=== PATIENT | female | born 1955 | race Caucasian/White ===

== ENCOUNTER → 2017-07-09 | Outpatient (CLI) | payer OTHER ==
[~2017-07-09] MED LIST: NONE PER PT
== END ==
LOC: STAR 15:30
PROVIDERS: ATTEND Internal Medicine Gastroenterology
DX: Z02.9 Encounter for administrative examinations, unspecified (principal)

== ENCOUNTER 2017-07-24 05:41 | Day surgery (SDC) | payer OTHER ==
[2017-07-09 16:06] VITALS: BP 122/84
[~2017-07-24] VITALS: Ht 157.5 cm; Wt 50.5 kg
[2017-07-24] MEDS ORDERED: LIDOCAINE 1%, 2ML ONE (06:40)
[2017-07-24] MEDS ORDERED: LACTATED RINGERS 1,000 ML IV SCH (06:43)
[2017-07-24] MEDS ORDERED: LIDOCAINE 1%, 2ML SQ PRN (07:00)
[2017-07-24] MEDS ORDERED: MIDAZOLAM 1 MG/ML, 2ML ONE (07:51)
[2017-07-24] MEDS ORDERED: ACETAMINOPHEN 325 MG TABLET PO PRN (08:00)
[2017-07-24] MEDS ORDERED: PROMETHAZINE 25 MG/ML, 1ML IV PRN (08:00)
[2017-07-24] MEDS ORDERED: FENTANYL PF 100 MCG/2ML IV PRN (08:00)
[2017-07-24] MEDS ORDERED: HYDROmorphone 1 MG/ML, 1ML IV PRN (08:00)
[2017-07-24] MEDS ORDERED: ONDANSETRON 2MG/ML, 2ML IVPush PRN (08:00)
[2017-07-24] MEDS ORDERED: PROPOFOL 10 MG/ML, 20ML ONE (08:11)
[2017-07-24] MEDS ORDERED: ONDANSETRON 2MG/ML, 2ML ONE (08:11)
== END 2017-07-24 10:30 ==
LOC: OUT 05:41
PROVIDERS: ATTEND Internal Medicine Gastroenterology
DX: Z09 Encounter for follow-up examination after completed treatment for conditions other than malignant neoplasm (principal); Z86.010 Personal history of colon polyps; D12.2 Benign neoplasm of ascending colon
CPT/HCPCS: 45380; 45385; 88305; J2250; J2405; J2704; J3490; J7120